=== PATIENT | female | born 1990 | race African-American/Black ===

== ENCOUNTER 2020-05-22 04:21 | Emergency (ER) | payer MEDICAID, OTHER ==
[~2020-05-22] VITALS: Ht 165.1 cm; Wt 66.0 kg
[2020-05-22] MEDS ORDERED: TETANUS, DIPHTHERIA, PERTUSSIS VAC/PF 0.5ML (>7YR OLD) IM ONE (05:00)
[2020-05-22] MEDS ORDERED: CEFAZOLIN 1000MG PREMIX 50 ML IV ONE (05:00)
[2020-05-22 05:19] LABS: BASOPHILS % 0.6 % (0.0-2.0); EOSINOPHILS % 0.5 % (0.0-5.0); HEMATOCRIT. 32.3 % (36.0-48.0); LYMPHOCYTES % 16.5 % (20.0-50.0); MEAN CORPUSCULAR HEMOGLOBIN 22.5 pg (28.0-32.0); MEAN CORPUSCULAR VOLUME 72.7 fL (81.0-99.0); MEAN PLATELET VOLUME 7.3 fl (7.4-10.4); MONOCYTES % 10.3 % (2.0-8.0); NEUTROPHILS % 72.1 % (40.0-76.0); PLATELET 311 x1000/uL (130-400); RED BLOOD CELL COUNT 4.44 mill/uL (4.2-5.4); RED CELL DISTRIBUTION WIDTH 17.6 % (11.6-14.6)
[2020-05-22 05:29] LABS: CHLORIDE 104 mEq/L (98-107)
[2020-05-22] MEDS ORDERED: KETOROLAC 30MG/ML VIAL IV ONE (06:15)
[2020-05-22] MEDS ORDERED: IBUP-2029 MT (09:56)
[2020-05-22] MEDS ORDERED: MORPHINE SULFATE 4 MG/ML CPJ (NOT FOR IM USE) IV ONE (10:30)
[2020-05-22] MEDS: HYDROCODONE/ACETAMINOPHEN 5/325MG TABLET PO PRN (18:42)
[2020-05-23] MEDS: HYDROCODONE/ACETAMINOPHEN 5/325MG TABLET PO PRN ×2 (03:19→10:25)
[2020-05-23] MEDS ORDERED: HYDROCODONE/ACETAMINOPHEN 5/325MG TABLET PO ONE (03:45)
[2020-05-23 10:25] VITALS: BP 128/70
== END 2020-05-23 10:50 | disposition home or self-care (01) ==
LOC: ER 04:32
DX: S82.54XA Nondisplaced fracture of medial malleolus of right tibia, initial encounter for closed fracture (principal); S92.514A Nondisplaced fracture of proximal phalanx of right lesser toe(s), initial encounter for closed fracture; S50.811A Abrasion of right forearm, initial encounter; J45.909 Unspecified asthma, uncomplicated; Z87.81 Personal history of (healed) traumatic fracture; Z98.890 Other specified postprocedural states; Z59.0 Homelessness; W13.0XXA Fall from, out of or through balcony, initial encounter; Y04.0XXA Assault by unarmed brawl or fight, initial encounter; Y93.89 Activity, other specified; Y92.89 Other specified places as the place of occurrence of the external cause
CPT/HCPCS: 29515; 36415; 70450; 72125; 72128; 72131; 73610; 73630; 80053; 85025; 90471; 90715; 93005; 96365; 96375; 99285; J0690; J1885; J2270; Z7610

== ENCOUNTER 2020-05-28 23:12 | Emergency (ER) | payer OTHER ==
[~2020-05-28] VITALS: Ht 170.2 cm; Wt 63.0 kg
[~2020-05-28 23:12] MED LIST: IBUP-2029 MT
[2020-05-28] MEDS ORDERED: IBUPROFEN 600MG TABLET PO ONE (23:45)
[2020-05-29 00:10] VITALS: BP 130/74
== END 2020-05-29 00:12 ==
LOC: ER 23:12
DX: Z48.00 Encounter for change or removal of nonsurgical wound dressing (principal)
CPT/HCPCS: 29515; 99283

== ENCOUNTER 2020-08-29 12:02 | Emergency (ER) | payer MEDICAID, OTHER ==
[~2020-08-29] VITALS: Ht 162.6 cm; Wt 55.0 kg
[2020-08-29 12:40] LABS: BASOPHILS % 0.8 % (0.0-2.0); EOSINOPHILS % 0.1 % (0.0-5.0); HEMATOCRIT. 28.3 % (36.0-48.0); HEMOGLOBIN. 9.2 g/dL (12.0-16.0); LYMPHOCYTES % 25.4 % (20.0-50.0); MEAN CORPUSCULAR HEMOGLOBIN 23.6 pg (28.0-32.0); MEAN PLATELET VOLUME 7.2 fl (7.4-10.4); MONOCYTES % 10.7 % (2.0-8.0); PLATELET 298 x1000/uL (130-400); RED BLOOD CELL COUNT 3.87 mill/uL (4.2-5.4); RED CELL DISTRIBUTION WIDTH 18.3 % (11.6-14.6)
[2020-08-29 12:42] LABS: CHLORIDE 105 mEq/L (98-107)
[2020-08-29 12:46] LABS: ETHANOL BLOOD < 10 mg/dL
[2020-08-29 13:13] LABS: HCG SCREEN NEGATIVE
[2020-08-29 15:13] LABS: CLARITY URINE CLEAR (CLEAR); COLOR URINE YELLOW (YELLOW); KETONES URINE TRACE (NEGATIVE); LEUKOCYTE ESTERASE URINE NEGATIVE (NEGATIVE); NITRITE URINE NEGATIVE (NEGATIVE); OCCULT BLOOD URINE NEGATIVE (NEGATIVE); PROTEIN URINE NEGATIVE (NEGATIVE); SPECIFIC GRAVITY URINE 1.007 (1.005-1.030); UROBILINOGEN URINE 0.2 E.U./dL (0.2-1.0)
[2020-08-29 17:13] VITALS: BP 132/75
== END 2020-08-29 17:15 | disposition home or self-care (01) ==
LOC: ER 12:02
DX: R10.9 Unspecified abdominal pain (principal); D64.9 Anemia, unspecified; R00.0 Tachycardia, unspecified; F10.21 Alcohol dependence, in remission; Z59.0 Homelessness
CPT/HCPCS: 36415; 80048; 80076; 80320; 81003; 83690; 84703; 85025; 99285; Z7610; G0480

== ENCOUNTER 2020-08-29 18:20 | Emergency (ER) | payer MEDICAID ==
[~2020-08-29] VITALS: Ht 165.1 cm; Wt 75.0 kg
[2020-08-29 20:15] VITALS: BP 122/66
== END 2020-08-29 20:40 | disposition home or self-care (01) ==
LOC: ER 18:20
DX: Z76.5 Malingerer [conscious simulation] (principal)
CPT/HCPCS: 99281

== ENCOUNTER 2020-10-16 21:03 | Emergency (ER) | payer MEDICAID ==
[~2020-10-16] VITALS: Ht 165.1 cm; Wt 70.0 kg
[2020-10-17] MEDS ORDERED: HYDROCODONE/ACETAMINOPHEN 5/325MG TABLET PO STA (00:54)
[2020-10-17] MEDS ORDERED: IBUP-2029 PO (02:30)
[2020-10-17 04:00] VITALS: BP 128/72
== END 2020-10-17 04:05 | disposition home or self-care (01) ==
LOC: ER 21:03
DX: M25.571 Pain in right ankle and joints of right foot (principal); M25.511 Pain in right shoulder; M54.9 Dorsalgia, unspecified; Z76.5 Malingerer [conscious simulation]; V03.90XA Pedestrian on foot injured in collision with car, pick-up truck or van, unspecified whether traffic or nontraffic accident, initial encounter; Y93.89 Activity, other specified; Y92.9 Unspecified place or not applicable
CPT/HCPCS: 71045; 72100; 73030; 73590; 73610; 81025; 99284

== ENCOUNTER 2020-11-13 09:44 | Emergency (ER) | payer MEDICAID ==
[~2020-11-13] VITALS: Ht 175.3 cm; Wt 64.0 kg
[~2020-11-13 09:44] MED LIST changes: +IBUP-2029 PO
[2020-11-13] MEDS ORDERED: IBUPROFEN 600MG TABLET PO ONE (10:30)
[2020-11-13] MEDS ORDERED: IBUP-2029 PO (10:35)
[2020-11-13 10:36] VITALS: BP 119/80
== END 2020-11-13 13:06 | disposition home or self-care (01) ==
LOC: ER 11:24
DX: S00.83XA Contusion of other part of head, initial encounter (principal); F41.9 Anxiety disorder, unspecified; Y04.0XXA Assault by unarmed brawl or fight, initial encounter; Y93.89 Activity, other specified; Y92.488 Other paved roadways as the place of occurrence of the external cause
CPT/HCPCS: 70110; 99283

== ENCOUNTER 2021-01-10 07:40 | Emergency (ER) | payer MEDICAID ==
[~2021-01-10] VITALS: Ht 162.6 cm; Wt 82.0 kg
[2021-01-10] MEDS ORDERED: SODIUM CHLORIDE 0.9% 1,000 ML IV ONE ×3 (08:45→21:15)
[2021-01-10 09:10] LABS: BASOPHILS % 0.5 % (0.0-2.0); EOSINOPHILS % 0.2 % (0.0-5.0); HEMATOCRIT. 32.8 % (36.0-48.0); HEMOGLOBIN. 10.3 g/dL (12.0-16.0); LYMPHOCYTES % 16.4 % (20.0-50.0); MEAN CORPUSCULAR HEMOGLOBIN 24.9 pg (28.0-32.0); MEAN CORPUSCULAR VOLUME 79.9 fL (81.0-99.0); MEAN PLATELET VOLUME 7.3 fl (7.4-10.4); MONOCYTES % 8.5 % (2.0-8.0); NEUTROPHILS % 74.4 % (40.0-76.0); PLATELET 303 x1000/uL (130-400); RED BLOOD CELL COUNT 4.11 mill/uL (4.2-5.4); RED CELL DISTRIBUTION WIDTH 19.5 % (11.6-14.6)
[2021-01-10 09:17] LABS: CHLORIDE 105 mEq/L (98-107)
[2021-01-10 09:24] LABS: BETA HYDROXYBUTYRATE 0.4 mMol/L (0.0-0.3)
[2021-01-10 09:56] LABS: CLARITY URINE CLEAR (CLEAR); COLOR URINE YELLOW (YELLOW); KETONES URINE 1+ (NEGATIVE); LEUKOCYTE ESTERASE URINE TRACE (NEGATIVE); NITRITE URINE NEGATIVE (NEGATIVE); OCCULT BLOOD URINE 3+ (NEGATIVE); PROTEIN URINE NEGATIVE (NEGATIVE); SPECIFIC GRAVITY URINE 1.026 (1.005-1.030); UROBILINOGEN URINE 0.2 E.U./dL (0.2-1.0)
[2021-01-10 10:24] LABS: *BARBITURATES SCREEN URINE NEGATIVE (NEGATIVE); *BENZODIAZEPINES SCREEN URINE NEGATIVE (NEGATIVE)
[2021-01-10 10:25] LABS: *COCAINE SCREEN URINE NEGATIVE (NEGATIVE); METHADONE URINE SCREEN NEGATIVE (NEGATIVE); OPIATES URINE SCREEN NEGATIVE (NEGATIVE); PHENCYCLIDINE URINE SCREEN NEGATIVE (NEGATIVE)
[2021-01-10 10:30] LABS: *AMPHETAMINES SCREEN URINE PRESUMTIVE POSITIVE (NEGATIVE); CANNABINOID URINE SCREEN PRESUMTIVE POSITIVE (NEGATIVE)
[2021-01-10] MEDS ORDERED: ZIPRASIDONE MESYLATE 20MG/VIAL IM ONE (11:15)
[2021-01-10] MEDS ORDERED: LORAZEPAM 2MG/ML CPJ IM ONE (11:15)
[2021-01-10] MEDS ORDERED: HALOPERIDOL LACTATE 5MG/ML VIAL IM ONE (11:15)
[2021-01-11] MEDS ORDERED: KETOROLAC 30MG/ML VIAL IV ONE
[2021-01-11] MEDS ORDERED: SODIUM CHLORIDE 0.9% 1,000 ML IV ONE
[2021-01-11 04:00] VITALS: BP 110/69
== END 2021-01-11 04:25 | disposition home or self-care (01) ==
LOC: ER 07:40
DX: T43.621A Poisoning by amphetamines, accidental (unintentional), initial encounter (principal); N17.0 Acute kidney failure with tubular necrosis; R55 Syncope and collapse; F91.8 Other conduct disorders; E86.0 Dehydration; F16.129 Hallucinogen abuse with intoxication, unspecified; F41.9 Anxiety disorder, unspecified; F12.10 Cannabis abuse, uncomplicated; F17.210 Nicotine dependence, cigarettes, uncomplicated; R31.9 Hematuria, unspecified; N05.9 Unspecified nephritic syndrome with unspecified morphologic changes; R26.9 Unspecified abnormalities of gait and mobility; D63.1 Anemia in chronic kidney disease; N18.9 Chronic kidney disease, unspecified; Z78.1 Physical restraint status; Z59.00 Homelessness unspecified; Z75.1 Person awaiting admission to adequate facility elsewhere; Y92.488 Other paved roadways as the place of occurrence of the external cause
CPT/HCPCS: 36415; 80053; 80305; 81003; 82010; 83605; 83880; 84484; 85025; 93970; 96361; 96372; 96374; 99285; J1630; J1885; J2060; J3486; J7030; Z7610

== ENCOUNTER 2021-01-11 06:19 | Emergency (ER) | payer MEDICAID ==
[~2021-01-11] VITALS: Ht 165.1 cm; Wt 82.0 kg
[2021-01-11 06:31] VITALS: BP 122/78
== END 2021-01-11 10:14 | disposition home or self-care (01) ==
LOC: ER 06:19
DX: M79.10 Myalgia, unspecified site (principal); F41.9 Anxiety disorder, unspecified; Z59.00 Homelessness unspecified; Z87.81 Personal history of (healed) traumatic fracture; Z98.890 Other specified postprocedural states
CPT/HCPCS: 99281